=== PATIENT | male | born 1955 | race Hispanic/Latino ===

== ENCOUNTER 2019-08-10 | Emergency (ER) | payer BC ==
[2019-08-10 10:47] LABS: HEMATOCRIT 42.2 % (39.0-50.0); HEMOGLOBIN 15.3 g/dl (14.0-18.0); IMMATURE GRANULOCYTES 0.3 % (0.0-5.0); MEAN CELL VOLUME 82.4 fL CALC (80.0-100.0); MEAN CORPUSCULAR HGB 29.9 pG CALC (26.0-32.0); MEAN CORPUSCULAR HGB CONC 36.3 g/dL CAL (32.0-36.0); NEUT# 4.43 thou/uL (1.82-7.42); RED BLOOD COUNT 5.12 mill/uL (4.70-6.10); RED CELL DISTRI WIDTH 11.7 % (11.5-15.5)
[2019-08-10 11:09] LABS: URINE BILIRUBIN - DIPSTICK NEGATIVE (NEGATIVE); URINE BLOOD DIPSTICK NEGATIVE (NEGATIVE); URINE COLOR YELLOW; URINE GLUCOSE - DIPSTICK >=1000 mg/dL (NEGATIVE); URINE KETONE TRACE mg/dL (NEGATIVE); URINE LEUK ESTERASE NEGATIVE (NEGATIVE); URINE NITRITE - DIPSTICK NEGATIVE (Negative); URINE PROTEIN - DIPSTICK >=300 mg/dL (NEG-TRACE); URINE SPECIFIC GRAVITY 1.025; URINE UROBILINOGEN - DIPSTICK 0.2 E.U./dL (0.2)
[2019-08-10 11:14] LABS: ALBUMIN 3.2 g/dL (3.2-5.0); ALKALINE PHOSPHATASE 79 u/l (38-126); BUN 12 mg/dL (8-23); BUN/CREATININE RATIO 19 (12-20 (CALC)); CARBON DIOXIDE 23 mmol/l (22-30); CHLORIDE 100 mmol/l (95-108); CREATININE 0.7 mg/dL (0.7-1.3); GFR > 60 ML/MIN (>=60 (CALC)); GFR FOR AFR.AMER. > 60 ML/MIN (>=60 (CALC)); SGOT/AST 29 u/l (19-48); TOTAL PROTEIN 5.9 g/dL (6.3-8.2)
[2019-08-10 11:19] LABS: ANION GAP 12 (6-22 (CALC)); BILIRUBIN, TOTAL 0.6 mg/dL (0.0-1.4); SODIUM 131 mmol/l (137-146)
[2019-08-10 11:26] LABS: MYOGLOBIN 42 ng/mL (0 - 121)
[2019-08-10 11:27] LABS: BARBITURATES NEGATIVE (NEGATIVE); COCAINE NEGATIVE (NEGATIVE); METHADONE NEGATIVE (NEGATIVE); OXCYCODONE NEGATIVE (NEGATIVE); TETRAHYDROCANNABIONOL NEGATIVE (NEGATIVE); TRICYLIC ANTIDEPRESSANTS NEGATIVE (NEGATIVE)
[2019-08-10 11:55] LABS: URINE RBC 0-2 RBC/hpf (0-5)
[2019-08-10 11:56] LABS: URINE MUCUS FEW hpf (NONE-FEW); URINE SQUAMOUS EPITHELIAL CELL FEW EPI/hpf (0-FEW)
[2019-08-10] MEDS ORDERED: MECLIZINE25 M1 PO (14:14)
[2019-08-10] MEDS ORDERED: METFORMIN500 M2 PO (14:14)
== END 2019-08-10 14:18 | disposition home or self-care (01) | DRG 149 ==
PROVIDERS: Emergency Medicine
DX: R42 Dizziness and giddiness (principal); E11.9 Type 2 diabetes mellitus without complications

== ENCOUNTER 2021-07-16 13:59 | Emergency (ER) | payer BC ==
[~2021-07-16] VITALS: Ht 170.2 cm; Wt 75.0 kg
[~2021-07-16 13:59] MED LIST: MECLIZINE25 M1 PO; METFORMIN500 M2 PO
[2021-07-16 14:18] LABS: HEMATOCRIT 39.9 % (39.0-50.0); IMMATURE GRANULOCYTES 0.3 % (0.0-5.0); MEAN CELL VOLUME 86.2 fL CALC (80.0-100.0); MEAN CORPUSCULAR HGB 30.2 pG CALC (26.0-32.0); MEAN CORPUSCULAR HGB CONC 35.1 g/dL CAL (32.0-36.0); NEUT# 3.93 thou/uL (1.82-7.42); RED BLOOD COUNT 4.63 mill/uL (4.70-6.10); RED CELL DISTRI WIDTH 12.6 % (11.5-15.5)
[2021-07-16 14:30] LABS: ALKALINE PHOSPHATASE 60 u/l (38-126); ANION GAP 13 (6-22 (CALC)); BILIRUBIN, TOTAL 0.5 mg/dL (0.0-1.4); BUN 15 mg/dL (8-23); BUN/CREATININE RATIO 20 (12-20 (CALC)); CARBON DIOXIDE 22 mmol/l (22-30); CHLORIDE 101 mmol/l (95-108); CREATININE 0.8 mg/dL (0.7-1.3); GFR > 60 ML/MIN (>=60 (CALC)); GFR FOR AFR.AMER. > 60 ML/MIN (>=60 (CALC)); POTASSIUM 3.9 mmol/l (3.5-5.1); SGOT/AST 28 u/l (19-48); SODIUM 131 mmol/l (137-146); TOTAL PROTEIN 6.8 g/dL (6.3-8.2)
[2021-07-16 14:36] LABS: ALBUMIN 4.1 g/dL (3.2-5.0)
== END 2021-07-16 16:45 | disposition short-term general hospital (02) | DRG 313 ==
LOC: ED 13:59
PROVIDERS: Family Medicine
DX: R07.9 Chest pain, unspecified (principal); Z95.828 Presence of other vascular implants and grafts

== ENCOUNTER 2021-07-23 14:19 | Emergency (ER) | payer BC ==
[~2021-07-23] VITALS: Ht 167.6 cm; Wt 74.8 kg
[2021-07-23] MEDS ORDERED: RANOLAZINE ER500 MG PO (14:43)
[2021-07-23 15:18] LABS: HEMATOCRIT 38.6 % (39.0-50.0); IMMATURE GRANULOCYTES 0.2 % (0.0-5.0); MEAN CELL VOLUME 83.9 fL CALC (80.0-100.0); MEAN CORPUSCULAR HGB 30.4 pG CALC (26.0-32.0); MEAN CORPUSCULAR HGB CONC 36.3 g/dL CAL (32.0-36.0); NEUT# 8.2 thou/uL (1.82-7.42); RED BLOOD COUNT 4.6 mill/uL (4.70-6.10)
[2021-07-23 15:26] LABS: ALBUMIN 4.1 g/dL (3.2-5.0); ALKALINE PHOSPHATASE 55 u/l (38-126); ANION GAP 9 (6-22 (CALC)); BILIRUBIN, TOTAL 0.6 mg/dL (0.0-1.4); BUN 11 mg/dL (8-23); BUN/CREATININE RATIO 14 (12-20 (CALC)); CARBON DIOXIDE 22 mmol/l (22-30); CHLORIDE 96 mmol/l (95-108); CREATININE 0.8 mg/dL (0.7-1.3); GFR > 60 ML/MIN (>=60 (CALC)); GFR FOR AFR.AMER. > 60 ML/MIN (>=60 (CALC)); LIPASE 87 u/l (23-300); POTASSIUM 3.9 mmol/l (3.5-5.1); SGOT/AST 30 u/l (19-48); TOTAL PROTEIN 6.9 g/dL (6.3-8.2)
[2021-07-23 15:27] LABS: ACT PARTIAL THROMBO TIME 26.3 SECONDS (20.0-32.5); INTERNATIONAL NORMALIZED RATIO 0.9 RATIO (0.7-1.3); PROTHROMBIN TIME 9.9 SECONDS (9.0-12.5)
[2021-07-23 15:28] LABS: SODIUM 123 mmol/l (137-146)
[2021-07-23] MEDS ORDERED: COLACE100 MG PO (16:55)
[2021-07-23 17:05] VITALS: BP 155/84
== END 2021-07-23 17:12 | disposition home or self-care (01) | DRG 395 ==
LOC: ED 14:19
DX: K60.2 Anal fissure, unspecified (principal); I10 Essential (primary) hypertension; E11.9 Type 2 diabetes mellitus without complications; Z95.5 Presence of coronary angioplasty implant and graft
CPT/HCPCS: Q9967

== ENCOUNTER 2023-05-17 03:28 | Emergency (ER) | payer MEDICARE ==
[~2023-05-17] VITALS: Ht 165.1 cm; Wt 77.0 kg
[~2023-05-17 03:28] MED LIST changes: +COLACE100 MG PO; +RANOLAZINE ER1000 MG PO
[2023-05-17] MEDS ORDERED: ASPIRINCHW 81MG PO (04:20)
[2023-05-17] MEDS ORDERED: TOPROL XL25 M1 PO (04:20)
[2023-05-17] MEDS ORDERED: ISOSORB MONO30 MG PO (04:21)
[2023-05-17] MEDS ORDERED: ATORVASTATIN CA40 MG PO (04:22)
[2023-05-17] MEDS ORDERED: CYMBALTA30 MG PO (04:22)
[2023-05-17] MEDS ORDERED: PLAVIX75 MG PO (04:23)
[2023-05-17] MEDS ORDERED: FINASTERIDE5 MG PO (04:23)
[2023-05-17] MEDS ORDERED: PROSTATE MED (04:24)
[2023-05-17 04:42] VITALS: BP 123/87
== END 2023-05-17 04:42 | disposition home or self-care (01) ==
LOC: ED 03:28
DX: S31.31XA Laceration without foreign body of scrotum and testes, initial encounter (principal); I10 Essential (primary) hypertension; E11.9 Type 2 diabetes mellitus without complications; W27.2XXA Contact with scissors, initial encounter; Y93.E8 Activity, other personal hygiene; Z95.5 Presence of coronary angioplasty implant and graft; Z79.01 Long term (current) use of anticoagulants